=== PATIENT | female | born 1985 | race Asian ===

== ENCOUNTER 2017-02-04 09:14 | Inpatient (IN) | payer SELFPAY ==
[~2017-02-04] VITALS: Ht 162.6 cm; Wt 66.7 kg
[2017-02-04] MEDS ORDERED: LR 1,000 ML IV ONE (10:06)
[2017-02-04] MEDS ORDERED: OXYTOCIN/NORMAL SALINE 1,000 ML IV SCH ×2 (10:06→16:49)
[2017-02-04] MEDS ORDERED: LR 1,000 ML IV SCH (10:06)
[2017-02-04] MEDS ORDERED: TERBUTALINE SULFATE 1 MG/ML VIAL SUBCUT ONE (10:15)
[2017-02-04] MEDS ORDERED: NALBUPHINE HCL 10 MG/ML AMP IVP PRN (10:15)
[2017-02-04] MEDS ORDERED: FENT2mCg/mL-ROPIVA0.2%/NS EPID 150 ML EP ONE (10:39)
[2017-02-04] MEDS ORDERED: FENT2mCg/mL-ROPIVA0.2%/NS EPID 150 ML EP SCH (10:39)
[2017-02-04 10:40] LABS: HEMOGLOBIN 12.5 g/dL (12.0-16.0); LYMPHOCYTES # (AUTO) 1.1 K/uL (1.0-5.5); MEAN CORPUSCULAR VOLUME 93 fL (79.0-98.0); NEUTROPHILS # (AUTO) 12.2 K/uL (1.8-7.7)
[2017-02-04 10:47] LABS: BASOPHILS % (AUTO) 0.3 % (0.0-2.0); EOSINOPHILS % (AUTO) 0.1 % (0.0-4.0); HEMATOCRIT 36.6 % (36-48); LYMPHOCYTES % (AUTO) 8.2 % (20.5-51.5); MEAN CORPUSCULAR HEMOGLOBIN 32 pg (27-31); MEAN CORPUSCULAR HGB CONC 34 % (32-36); MONOCYTES # (AUTO) 0.6 K/uL (0.0-1.0); MONOCYTES % (AUTO) 4.3 % (1.7-9.3); NEUTROPHILS % (AUTO) 87.1 % (40.0-70.0); PLATELET COUNT (AUTO) 172 K/uL (130-430); RED BLOOD CELL COUNT(AUTO) 3.94 MIL/uL (4.2-6.2); WHITE BLOOD COUNT (AUTO) 13.9 K/uL (4.8-10.8)
[2017-02-04] MEDS ORDERED: FLU VACC QS 2017-18(36MOS+)/PF 0.5 ML/SYR SYRINGE I.M. PRN (14:00)
[2017-02-04 14:01] VITALS: BP_SYST 103
[2017-02-04] MEDS ORDERED: OXYTOCIN/NORMAL SALINE 1,000 ML IV ONE (16:49)
[2017-02-04] MEDS ORDERED: LANOLIN 7 GM OINT. TP PRN (17:00)
[2017-02-04] MEDS ORDERED: MEASLES,MUMPS&RUBELLA VACC/PF 12500 UNIT/0.5 ML VIAL SUBQ PRN (17:00)
[2017-02-04] MEDS ORDERED: HYDROCORTISONE 0.5%, 28.35 GM TOPICAL CREAM TP PRN (17:00)
[2017-02-04] MEDS ORDERED: TEMAZEPAM 15 MG CAPSULE PO PRN (17:00)
[2017-02-04] MEDS ORDERED: RHO(D) IMMUNE GLOBULIN/MALTOSE 1500 UNITS/1.3 ML (WINHRO) IM PRN (17:00)
[2017-02-04] MEDS ORDERED: METHYLERGONOVINE MALEATE 0.2 MG TABLET PO PRN (17:00)
[2017-02-04] MEDS ORDERED: SENNOSIDES/DOCUSATE SODIUM 1 TAB TABLET(SENOKOT-S) PO PRN (17:00)
[2017-02-04] MEDS ORDERED: GLYCERIN/WITCH HAZEL (TUCKS PADS) TP PRN (17:00)
[2017-02-04] MEDS ORDERED: HYDROcodone/ACETAMIN 5-325 MG TAB (NORCO/ VICODIN) PO PRN ×2 (17:00)
[2017-02-04] MEDS ORDERED: ACETAMINOPHEN 325 MG TABLET PO PRN (17:00)
[2017-02-04] MEDS ORDERED: ANUSOL 1 EA SUPP.RECT (PREPARATION H) RC PRN (17:00)
[2017-02-04] MEDS ORDERED: DERMOPLAST SPRAY TP PRN (17:00)
[2017-02-04] MEDS ORDERED: ACETAMINOPHEN 325 MG TABLET ONE (17:05)
[2017-02-04] MEDS ORDERED: IBUPROFEN 600 MG TABLET ONE (17:09)
[2017-02-04] MEDS: IBUPROFEN 600 MG TABLET PO SCH (17:41)
[2017-02-05] MEDS: IBUPROFEN 600 MG TABLET PO SCH ×4 (01:05→17:54)
[2017-02-05 08:01] LABS: HEMATOCRIT 30.2 % (36-48)
[2017-02-05] MEDS: DOCUSATE SODIUM 100 MG CAPSULE PO PRN (17:51)
[2017-02-06] MEDS: IBUPROFEN 600 MG TABLET PO SCH ×2 (00:21→06:34)
[2017-02-06] MEDS ORDERED: DIPH-TET-PERTUS Vaccine 0.5 ML VIAL/Tdap (ADACEL) I.M. PRN (03:00)
[2017-02-06] MEDS: DOCUSATE SODIUM 100 MG CAPSULE PO PRN (09:45)
== END 2017-02-06 11:20 | disposition home or self-care (01) | DRG 775 ==
LOC: OBSVTOIN 09:14 → SPU 09:14
PROVIDERS: ADMIT Obstetrics & Gynecology; ATTEND Obstetrics & Gynecology
PROC: 10D07Z6 Extraction of Products of Conception, Vacuum, Via Natural or Artificial Opening (ICD-10-PCS; principal; 2017-02-04)
PROC: 0W8NXZZ Division of Female Perineum, External Approach (ICD-10-PCS; 2017-02-04)
PROC: 3E0R3CZ (ICD-10-PCS; 2017-02-04)
PROC: 00HU33Z Insertion of Infusion Device into Spinal Canal, Percutaneous Approach (ICD-10-PCS; 2017-02-04)
PROC: 3E0134Z Introduction of Serum, Toxoid and Vaccine into Subcutaneous Tissue, Percutaneous Approach (ICD-10-PCS; 2017-02-04)
DX: O75.89 Other specified complications of labor and delivery (principal); Z23 Encounter for immunization; Z37.0 Single live birth; Z3A.39 39 weeks gestation of pregnancy
CPT/HCPCS: 36415; 81002-TC; 85018-TC; 85025; 86592; 86886; 86900; 86901; 90715; J0696; J2590; J3010; J7060; Q2037